=== PATIENT | male | born 1955 | race Caucasian/White ===

== ENCOUNTER → 2017-01-08 | Outpatient (CLI) | payer OTHER ==
[~2017-01-08] MED LIST: FLOMAX 0.4MG C0.4 MG PO; NORCO 325 MG-51 TAB PO
--- NOTE | 2017-01-09 14:44 | RADIOLOGY REPORT PS360 ---
KNEE-4 OR 5 VIEWS-RT HISTORY: RIGHT KNEE PAIN ORDERING PHYSICIAN: Joshua Palm MD PATIENT AGE: 61 years COMPARISON: None FINDINGS: Weightbearing views performed No fracture or dislocation. No lytic or blastic change. Normal mineralization. There is minimal spurring of the posterior superior patella. No significant arthritic changes evident. Increased density in the suprapatellar region suggesting a small knee joint effusion. IMPRESSION: 1. Small knee joint effusion. 2. Minimal osteoarthritic change of the patella
== END ==
LOC: RAD 15:44
DX: M25.561 Pain in right knee (principal)

== ENCOUNTER → 2017-04-04 | Outpatient (CLI) | payer OTHER ==
--- NOTE | 2017-04-05 06:22 | RADIOLOGY REPORT PS360 ---
MRI-LOW EXT ANY JOINT W/O-RT HISTORY: Medial meniscal tear. Pain along the medial side of the knee and inferior to the patella since twisting injury. Pain when bending TEAR OF MEDIAL MENISCUS OF RIGHT KNEE ORDERING PHYSICIAN: Joshua Palm MD PATIENT AGE: 62 years COMPARISON: Radiograph of 01/08/2017 TECHNIQUE: Standard multiplanar multiecho sequences are performed without contrast. FINDINGS: The cruciate ligaments, collateral ligaments, patellar tendon, and quadriceps tendon are intact. The lateral meniscus has an unremarkable appearance. A horizontal tear is present involving the posterior horn of the medial meniscus which is best demonstrated on the coronal STIR images. There is slight increased T2 signal involving the proximal tibia medially at the region of the anterior. The patellar cartilage is well-preserved. There is some increased T2 signal involving the medial aspect of the patella. There is a moderate size suprapatellar effusion. No obvious fracture. IMPRESSION: 1. Horizontal tear involves posterior horn of the medial meniscus. 2. Small bone bruise/edema of the medial tibial plateau 3. Mild amount of bone marrow edema of the medial aspect of the patella. 4. Moderate-sized suprapatellar effusion IMPRESSION:
== END ==
LOC: RAD 13:29
DX: S83.241D Other tear of medial meniscus, current injury, right knee, subsequent encounter (principal)